=== PATIENT | female | born 1940 | race African-American/Black ===

== ENCOUNTER → 2020-09-01 | Emergency (ER) | payer MEDICAID ==
[~2020-09-01] VITALS: Ht 160 cm; Wt 99.8 kg
[~2020-09-01] MED LIST: NITROFURANTOIN100 M2 ORAL; VOLTAREN100 G1 TP; Vitamin A&D Oint Tube TOPIC ONE
--- NOTE | 2020-09-01 15:24 | Emergency Room Report ---
History of Present Illness General Chief Complaint: Pain Source: Patient Present Illness HPI Patient is an 80-year-old female presents for increased bilateral upper extremity pain. Reports having pain to the bilateral upper arms. Denies any neck discomfort. Reports having intermittent headaches. Denies any recent trauma. Had been taking aspirin 81 mg intermittently. Denies any fever. Patient does not take any medications but has not seen a doctor for the past 10 years at least. Patient states that she is having pain to both arms which is not changed by exertion. Denies any prior cardiac history. Denies any history of diabetes. 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 This was due to trauma. Denies any weakness to her extremities. Patient was brought in by caregiver. Allergies: Coded Allergies: No Known Allergies (Unverified , 09/01/20) COVID-19 Screening Contact w/high risk pt: No Experienced COVID-19 symptoms?: No COVID-19 Testing performed [employer]: No Patient History Past Medical History: see triage record Last Menstrual Period: na Reviewed Nursing Documentation: PMH: Agreed; PSxH: Agreed Review of Systems All Other Systems: negative except mentioned in HPI Physical Exam Vital Signs Date Time Temp Pulse Resp B/P (MAP) Pulse Ox O2 Delivery O2 Flow Rate FiO2 09/01/20 15:07 97.5 69 16 142/76 (98) 97 Room Air Sp02 EP Interpretation: reviewed, normal General Appearance: normal inspection, well appearing, alert, GCS 15, obese, Chronically Ill Head: atraumatic ENT: normal ENT inspection, hearing grossly normal, normal voice Neck: normal inspection, full range of motion, supple, no bony tend Respiratory: normal inspection, lungs clear, normal breath sounds, no respiratory distress, no retraction, no wheezing Cardiovascular #1: regular rate, rhythm, no edema Gastrointestinal: normal inspection, no guarding Genitourinary: no CVA tenderness Musculoskeletal: back normal, normal range of motion, other - 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 Differential diagnosis include was not limited to neuropathy, cervical radiculopathy, anemia, among others. Because of complexity of patient's case laboratory tests and imaging studies were ordered. Patient was noted to have significantly advanced age. She does not appear to have any evidence of any focal neurologic deficits. Deep tendon reflexes appear to be normal. Patient is able to move all extremities with equal strength. Patient was advised of laboratory findings. Patient was agreeable with discharge plan. Patient was advised to follow-up with a primary care physician for further work-up which may include bone scan and further imaging studies. She was advised to watch her diet and that her blood sugar was elevated. Patient is advised to seek emergency care if she had any new concerns. This medical record is generated with [employer] securities research analyst software. There may be some securities research analyst discrepancies related to use of this software Labs Test 09/01/20 15:36 White Blood Count 9.1 K/UL (4.8-10.8) Red Blood Count 4.07 M/UL (4.20-5.40) Hemoglobin 11.1 G/DL (12.0-16.0) Hematocrit 35.9 % (37.0-47.0) Mean Corpuscular Volume 88 FL (80-99) Mean Corpuscular Hemoglobin 27.3 PG (27.0-31.0) Mean Corpuscular Hemoglobin Concent 30.9 G/DL (32.0-36.0) Red Cell Distribution Width 12.8 % (11.6-14.8) Platelet Count 400 K/UL (150-450) Mean Platelet Volume 7.1 FL (6.5-10.1) Neutrophils (%) (Auto) 55.4 % (45.0-75.0) Lymphocytes (%) (Auto) 34.4 % (20.0-45.0) Monocytes (%) (Auto) 6.7 % (1.0-10.0) Eosinophils (%) (Auto) 2.5 % (0.0-3.0) Basophils (%) (Auto) 1.0 % (0.0-2.0) Urine Color Pale yellow Urine Appearance Slightly cloudy Urine pH 5 (4.5-8.0) Urine Specific [place] 1.020 (1.005-1.035) Urine Protein 1+ (NEGATIVE) Urine Glucose (UA) Negative (NEGATIVE) Urine Ketones Negative (NEGATIVE) Urine Blood 1+ (NEGATIVE) Urine Nitrite Positive (NEGATIVE) Urine Bilirubin Negative (NEGATIVE) Urine Urobilinogen Normal MG/DL (0.0-1.0) Urine Leukocyte Esterase 1+ (NEGATIVE) Urine RBC 0-2 /HPF (0 - 2) Urine WBC 2-4 /HPF (0 - 2) Urine Squamous Epithelial Cells Few /LPF (NONE/OCC) Urine Bacteria Many /HPF (NONE) Sodium Level 140 MMOL/L (136-145) Potassium Level 4.0 MMOL/L (3.5-5.1) Chloride Level 103 MMOL/L (98-107) Carbon Dioxide Level 26 MMOL/L (21-32) Anion Gap 11 mmol/L (5-15) Blood Urea Nitrogen 22 mg/dL (7-18) Creatinine 1.0 MG/DL (0.55-1.30) Estimat Glomerular Filtration Rate > 60 mL/min (>60) Glucose Level 155 MG/DL (74-106) Calcium Level 10.0 MG/DL (8.5-10.1) Total Bilirubin 0.7 MG/DL (0.2-1.0) Aspartate Amino Transf (AST/SGOT) 13 U/L (15-37) Alanine Aminotransferase (ALT/SGPT) 19 U/L (12-78) Alkaline Phosphatase 148 U/L (46-116) Troponin I 0.000 ng/mL (0.000-0.056) C-Reactive Protein, Quantitative < 0.4 mg/dL (0.00-0.90) Total Protein 8.2 G/DL (6.4-8.2) Albumin 3.6 G/DL (3.4-5.0) Globulin 4.6 g/dL Albumin/Globulin Ratio 0.8 (1.0-2.7) Thyroid Stimulating Hormone (TSH) 1.158 uiU/mL (0.358-3.740) Last Vital Signs Date Time Temp Pulse Resp B/P (MAP) Pulse Ox O2 Delivery O2 Flow Rate FiO2 09/01/20 15:07 97.5 69 16 142/76 (98) 97 Room Air Status: improved Disposition: HOME, SELF-CARE Condition: Stable Scripts Diclofenac Sodium (VOLTAREN) 100 Gm Gel..gram. 5 GM TP EVERY 12 HOURS, #100 GM Prov: Carmine Miramontes MD 09/01/20 Nitrofurantoin Monohyd/M-Cryst* (MACROBID 100 MG*) 100 Mg Capsule 100 MG ORAL EVERY 12 HOURS, #14 CAP Prov: Carmien Miramontes MD 09/01/20 Referrals: NOT CHOSEN IPA/,REFERRING (PCP) Carmine Miramontes MD Sep 01, 2020 15:24
[2020-09-01 15:39] VITALS: BP 143/76
--- NOTE | 2020-09-01 15:41 | NUR ---
pt came to ED with caregiver because of bilateral arm pain that aches. pt is a/o x2 but forgetful. 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
[2020-09-01 16:06] LABS: APPEARANCE,URINE SLIGHTLY CLOUDY; BILIRUBIN, URINE NEGATIVE (NEGATIVE); COLOR,URINE PALE YELLOW; GLUCOSE, URINE (UA) NEGATIVE (NEGATIVE); KETONES,URINE NEGATIVE (NEGATIVE); LEUKOCYTE ESTERASE ,URINE 1+ (NEGATIVE); NITRITE,URINE POSITIVE (NEGATIVE); PH,URINE 5 (4.5-8.0); PROTEIN,URINE 1+ (NEGATIVE); UROBILINOGEN,URINE NORMAL MG/DL (0.0-1.0)
[2020-09-01 16:11] LABS: EOSINOPHILS % (AUTO) 2.5 % (0.0-3.0); HEMATOCRIT 35.9 % (37.0-47.0); HEMOGLOBIN 11.1 G/DL (12.0-16.0); LYMPHOCYTES % (AUTO) 34.4 % (20.0-45.0); MEAN CORPUSCULAR VOLUME 88 FL (80-99); MONOCYTES % (AUTO) 6.7 % (1.0-10.0); NEUTROPHILS % (AUTO) 55.4 % (45.0-75.0); PLATELET COUNT 400 K/UL (150-450); RED BLOOD COUNT 4.07 M/UL (4.20-5.40); RED CELL DISTRIBUTION WIDTH 12.8 % (11.6-14.8); WHITE BLOOD COUNT 9.1 K/UL (4.8-10.8)
[2020-09-01 16:26] LABS: ALANINE AMINOTRANSFERASE 19 U/L (12-78); ALBUMIN 3.6 G/DL (3.4-5.0); ALBUMIN/GLOBULIN RATIO 0.8 (1.0-2.7); ALKALINE PHOSPHATASE 148 U/L (46-116); ANION GAP 11 mmol/L (5-15); ASPARTATE AMINO TRANSFERASE 13 U/L (15-37); BILIRUBIN,TOTAL 0.7 MG/DL (0.2-1.0); BLOOD UREA NITROGEN 22 mg/dL (7-18); CARBON DIOXIDE 26 MMOL/L (21-32); CHLORIDE 103 MMOL/L (98-107); SODIUM 140 MMOL/L (136-145)
--- NOTE | 2020-09-01 17:00 | NUR ---
discharge instruction given and explained that medication were electronically to her pharmacy to be picked up. Also informed caregiver.
--- NOTE | 2020-09-01 17:03 | NUR ---
caregiver called and notifed that pt was being discharged and that he could be picked up
--- NOTE | 2020-09-01 17:04 | Diagnostic Imaging Report ---
EXAM: XR Chest, 1 View CLINICAL HISTORY: Pain TECHNIQUE: Frontal view of the chest. COMPARISON: No relevant prior studies available. FINDINGS: Lungs: Unremarkable. No consolidation. Pleural space: Unremarkable. No pneumothorax. Heart: Upper limits of normal cardiac silhouette. Mediastinum: Unremarkable. Bones/joints: There are degenerative changes of the spine. No fracture. IMPRESSION: No acute findings in the chest.
--- NOTE | 2020-09-01 17:10 | NUR ---
pt caregiver arrived and pt was wheeled by wheelchair to private vehicle. pt caregiver acknowledged that prescription will be picked up. pt and wound care nurse drove off in vehicle.
== END | disposition home or self-care (01) ==
LOC: EMR 15:16
DX: M79.602 Pain in left arm (principal); M79.601 Pain in right arm; R51.9 Headache, unspecified; Z79.82 Long term (current) use of aspirin; Z89.611 Acquired absence of right leg above knee; R73.9 Hyperglycemia, unspecified; E66.9 Obesity, unspecified; R82.71 Bacteriuria
CPT/HCPCS: 36415; 71045; 80053; 81001; 84443; 84484; 85025; 86140; 87086; 87181; Z7502; 99284